=== PATIENT | male | born 1965 | race Caucasian/White ===

== ENCOUNTER 2022-04-23 10:52 | Emergency (ER) | payer OTHER, SELFPAY ==
--- NOTE | 2022-04-23 11:12 | ED.SKABFB ---
HPI - Skin/Abscess/Foreign Bdy General Chief complaint: Wound/Laceration Stated complaint: possible infection to right foot Time Seen by Provider: 04/23/22 11:40 Source: patient Mode of arrival: ambulatory Limitations: no limitations History of Present Illness HPI narrative: Mr. Barrett is a 57-year-old male patient presenting to the clinic today with complaints of possible wound infection to his right foot. He reports he noticed 2 days ago that his foot became more swollen and red. He has been seeing his PCP at the [facility] for this chronic wound. he denies any fever, chills, or increasing pain to the right foot. He does have a history of diabetes. Related Data Allergies Allergy/AdvReac Type Severity Reaction Status Date / Time No Known Allergies Allergy Verified 04/23/22 11:39 Review of Systems Review of Systems: Pertinent positives per HPI. Patient denies any fever, chills, rash, headache, visual changes, dizziness, cough, runny nose, sore throat, shortness of breath, chest pain, palpitations, nausea, vomiting, diarrhea, constipation, abdominal pain, or any urinary issues. PMFSH Comments At the time of my signature, I reviewed and agree with the nursing past medical, surgical, social, and family history. There is no relevant family history pertinent to the patient complaint. Exam Narrative: General: Well-developed, well nourished, in no apparent distress Head: Normocephalic, atraumatic. Cardio: Regular rate and rhythm, s1 and s2 normal, no murmur appreciated. Resp: Clear to auscultation bilaterally, no rhonchi, rales, wheezing or rubs. Integumentary: [place], warm, and dry, 2 x 2 cm infected wound to the right midfoot with localized redness to the 2nd and 3rd toes. Wound culture obtained- no fluctuance or abscess palpable Course Course Emergency Course: Portions of this record may have been created with voice recognition software. Level of Care: Express Care Visit Vital Signs Vital signs: Vital Signs Temperature 35.9 C L 04/23/22 11:34 Pulse Rate 89 04/23/22 11:34 Respiratory Rate 16 04/23/22 11:34 Blood Pressure 140/79 04/23/22 11:34 Pulse Oximetry 99 04/23/22 11:34 Oxygen Delivery Room Air 04/23/22 11:34 Temperature 35.9 C L 04/23/22 11:34 Pulse Rate 89 04/23/22 11:34 Respiratory Rate 16 04/23/22 11:34 Blood Pressure 140/79 04/23/22 11:34 Pulse Oximetry 99 04/23/22 11:34 Oxygen Delivery Room Air 04/23/22 11:34 Vital signs reviewed MDM - Skin/Abscess/Foreign Bdy MDM Narrative Medical decision making narrative: at the time of visit patient is resting comfortably on the exam table. I suspect the patient has acute wound infection of a chronic wound. Prescription for doxycycline was sent to the pharmacy and a wound culture was obtained in the clinic today. Supportive measures were discussed with the patient he voiced understanding of discharge instructions and agrees to treatment plan. Differential Diagnosis Differential diagnosis: Likely abscess of skin or subcutaneous tissue and other ( Infected wound) Discharge Plan Discharge Clinical Impression: Wound infection Patient Disposition: Home, Self-Care Condition: Stable Instructions: Antibiotic Form, Wound Infection (ED) Additional Instructions: wet to dry dressing placed to the foot wound keep area clean and dry take doxycycline as prescribed Follow-up with your PCP next week as scheduled Prescriptions: New doxycycline monohydrate 100 mg capsule 100 mg PO BID 10 Days Qty: 20 0RF Follow-up/Referrals: Dental Practice Manager,Virgilio Cage MD [Primary Care Provider] - Time of Disposition: 12:05 Quality NIHSS Nursing Documentation ED NIHSS nursing documentation: reviewed/agree
[2022-04-23 11:34] VITALS: BP 140/79; PULSE 89; RESP 16; TEMP 35.9; O2SAT 99
== END 2022-04-23 12:12 | disposition home or self-care (01) ==
PROVIDERS: Emergency Provider Nurse Practitioner Family; PCP Internal Medicine Infectious Disease
DX: S91.301A Unspecified open wound, right foot, initial encounter (principal); L08.9 Local infection of the skin and subcutaneous tissue, unspecified; X58.XXXA Exposure to other specified factors, initial encounter; E11.42 Type 2 diabetes mellitus with diabetic polyneuropathy; I25.10 Atherosclerotic heart disease of native coronary artery without angina pectoris; E78.00 Pure hypercholesterolemia, unspecified; I10 Essential (primary) hypertension
CPT/HCPCS: 87070; 87075; 87077; 87185; 87205; 99213; G0463